=== PATIENT | female | born 1980 | race Caucasian/White ===

== ENCOUNTER → 2018-01-23 | Outpatient (CLI) | payer BC ==
--- NOTE | 2018-01-23 18:08 | Diagnostic Imaging Report ---
INDICATION: Undergoing anatomical assessment. TECHNIQUE: Multiple real-time grayscale images were obtained over the gravid uterus. COMPARISON: None. FINDINGS: Single viable intrauterine , currently in transverse orientation. Normal amount of amniotic fluid. Placenta is posterior and without evidence for previa. The visualized anatomical structures including the kidneys, bladder, stomach, intracranial structures, four-chamber heart, three-vessel cord, and cord insertion site are unremarkable. The spine is unable to be adequately visualized owing to positioning. Maternal adnexa not imaged. Cervical length is 5 cm. Biometrical measurements are as follows: Biparietal 5.45 cm, age 22 weeks 5 days. Head circumference 29.93 cm, age 23 weeks 1 days. Abdominal circumference 17.63 cm, age 22 weeks 4 days. Femur length 3.7 cm, age 21 weeks 6 days. Sonographic estimate age: 22 weeks 4 days. Sonographic estimated date of delivery: 05/25/2018. Estimated Weight: 492 gm (+/- 72 gm). LMP percentile: 67%. heart rate: 146 beats per minute. number: 1 of 1. IMPRESSION: Single viable intrauterine , currently in a transverse orientation. Sonographic estimated age 22 weeks 4 days with an estimated date of delivery of May 25, 2018. No abnormalities are noted at this time. However, the spine cannot be well visualized at this time. Dictated by: Dictated on workstation # [id number]
== END ==
LOC: RAD 10:01
PROVIDERS: ATTEND Obstetrics & Gynecology
DX: O09.512 Supervision of elderly primigravida, second trimester (principal); Z3A.22 22 weeks gestation of pregnancy
CPT/HCPCS: 76805

== ENCOUNTER → 2018-03-20 | Outpatient (CLI) | payer BC ==
--- NOTE | 2018-03-20 17:43 | Diagnostic Imaging Report ---
INDICATION: Further evaluation of anatomy, not seen on prior exam. TECHNIQUE: Multiple real-time grayscale images were obtained over the gravid uterus. COMPARISON: anatomy survey from 01/23/2018. FINDINGS: Single live intrauterine is noted in the cephalic position. MARTÍN is normal at 11.9 cm. Placenta is posteriorly located. Due to advanced gestational age, maternal adnexa are not well seen. The spine is able to be seen on today's examination and shows no abnormality. Biometrical measurements are as follows: Biparietal 8.27 cm, age 33 weeks 2 days. Head circumference 29.52 cm, age 32 weeks 5 days. Abdominal circumference 28.25 cm, age 32 weeks 2 days. Femur length 5.96 cm, age 31 weeks 1 days. Sonographic estimate age: 32 weeks 3 days. Sonographic estimated date of delivery: 05/12/2018. Estimated Weight: 1888 gm (+/- 276 gm). LMP percentile: 96%. heart rate: 150 beats per minute. number: 1 of 1. IMPRESSION: 1. spine is normal. 2. Appropriate interval growth since prior examination. Of note, the fetus is in the 96th percentile for weight based on gestational age. Dictated by: Dictated on workstation # [id number]
== END ==
LOC: RAD 14:03
PROVIDERS: ATTEND Obstetrics & Gynecology
DX: O10.913 Unspecified pre-existing hypertension complicating pregnancy, third trimester (principal); Z3A.32 32 weeks gestation of pregnancy
CPT/HCPCS: 76816

== ENCOUNTER 2018-04-15 10:47 | Outpatient (RCR) | payer BC ==
--- NOTE | 2018-04-15 12:59 | Diagnostic Imaging Report ---
INDICATION: Large for gestational age. TECHNIQUE: Multiple real-time grayscale images were obtained over the gravid uterus. COMPARISON: 03/20/2018. FINDINGS: There is a single live fetus in a cephalic presentation. heart rate was recorded at 155 beats per minute. Placenta is fundal. Amniotic fluid index is 15.2 cm. Biophysical profile was performed. Biophysical profile score is normal at 8 out of 8. Biometrical measurements are as follows: Biparietal 8.98 cm, age 36 weeks 3 days. Head circumference 33.23 cm, age 38 weeks 0 days. Abdominal circumference 32.54 cm, age 36 weeks 4 days. Femur length 6.96 cm, age 35 weeks 5 days. Sonographic estimate age: 36 weeks 5 days. Sonographic estimated date of delivery: 05/08/2018. Estimated Weight: 2931 gm (+/- 428 gm). LMP percentile: 98%. heart rate: 155 beats per minute. number: 1 of 1. IMPRESSION: Single live IUP measuring 36 weeks 5 days showing normal interval growth when compared with prior exam. Biophysical profile score is normal at 8 out of 8. Dictated by: Dictated on workstation # [id number]
--- NOTE | 2018-04-29 14:32 | Diagnostic Imaging Report ---
INDICATION: Gestational diabetes. TECHNIQUE: Multiple real-time grayscale images were obtained over the gravid uterus. COMPARISON: 04/15/2018. FINDINGS: There is single living intrauterine in a cephalic presentation. The biometry correlates with gestational age of 35 weeks 5 days. The amniotic fluid index is 9.65. Placenta is fundal. There is no previa. Heart rate is 152 beats per minute and regular. The anatomical survey is otherwise limited due to late gestational age. The biophysical profile score is 8/8. IMPRESSION: 1. Single living intrauterine with a sonographically estimated gestational age of 35 weeks 5 days and estimated date of confinement of May 29, 2018. 2. Normal biophysical profile score of 8/8. Biometrical measurements are as follows: Biparietal 8.99 cm, age 36 weeks 3 days. Head circumference 32.80 cm, age 37 weeks 2 days. Abdominal circumference 31.45 cm, age 35 weeks 3 days. Femur length 6.54 cm, age 33 weeks 5 days. Sonographic estimate age: 35 weeks 5 days. Sonographic estimated date of delivery: 05/29/18. Estimated Weight: 2627 gm (+/- 384 gm). LMP percentile: 39%. heart rate: 152 beats per minute. number: 1 of 1. Dictated by: Dictated on workstation # [id number]
--- NOTE | 2018-05-13 13:04 | Diagnostic Imaging Report ---
INDICATION: Large for gestational age. TECHNIQUE: Multiple real-time grayscale images were obtained over the gravid uterus. COMPARISON: 04/29/2018. FINDINGS: There is a single live fetus in cephalic presentation. heart rate was recorded 155 beats per minute. Placenta is fundal and to the right. Amniotic fluid index is 8.1 cm. Biophysical profile score is 8 out of 8. Biometrical measurements are as follows: Biparietal 10.10 cm, age 41 weeks 5 days. Head circumference 34.95 cm, age 40 weeks 5 days. Abdominal circumference 35.68 cm, age 39 weeks 5 days. Femur length 7.67 cm, age 39 weeks 2 days. Sonographic estimate age: 40 weeks 3 days. Sonographic estimated date of delivery: 05/10/2018. Estimated Weight: 3928 gm (+/- 574 gm). LMP percentile: 97%. heart rate: 155 beats per minute. number: 1 of 1. IMPRESSION: Single live term infant, as described. Biophysical profile score is 8 out of 8. Dictated by: Dictated on workstation # [id number]
[2018-05-18] MEDS ORDERED: HYDR12.5 PO (00:22)
[2018-05-18] MEDS ORDERED: ESCI10TA PO (00:22)
[2018-05-18] MEDS ORDERED: DOCO200C4 PO (00:22)
[2018-05-18] MEDS ORDERED: HYDR25TA4 PO (02:06)
[2018-05-25] MEDS ORDERED: DOCU100C37 PO (06:51)
[2018-05-25] MEDS ORDERED: Oxycodone Hcl PO (06:51)
[2018-05-25] MEDS ORDERED: IBUP-844 PO (06:51)
[2018-05-25] MEDS ORDERED: FERR-84 PO (06:51)
[2018-05-25] MEDS ORDERED: ACET-77 PO (06:51)
== END 2018-07-14 | disposition home or self-care (01) ==
LOC: RAD 10:47
PROVIDERS: ATTEND Obstetrics & Gynecology
DX: O36.63X1 Maternal care for excessive fetal growth, third trimester, fetus 1 (principal); O24.410 Gestational diabetes mellitus in pregnancy, diet controlled; O09.513 Supervision of elderly primigravida, third trimester; Z68.41 Body mass index [BMI] 40.0-44.9, adult
CPT/HCPCS: 76805; 76819

== ENCOUNTER 2018-05-17 23:47 | Outpatient (CLI) | payer BC ==
[~2018-05-17] VITALS: Ht 170.2 cm; Wt 122.7 kg
--- NOTE | 2018-05-17 23:55 | NUR ---
MARISSA ANGELES presented to unit via ambulatory from ED, accompanied by s/o, with c/o HIGH BLOOD PRESSURE,DIABETES. MARISSA ANGELES weighed, gowned, voided, and to bed. EFHM and TOCO applied, VS taken. MARISSA ANGELES oriented to bed controls, call light, TV, heat, and A/C controls.
[2018-05-18] VITALS (7 sets, daily range): BP systolic 134–150; BP diastolic 77–94
[2018-05-18 00:08] LABS: BILIRUBIN,URINE NEGATIVE (NEGATIVE); CLARITY,URINE CLEAR; COLOR,URINE YELLOW; GLUCOSE, URINE (UA) NEGATIVE (NEGATIVE); KETONES,URINE 4+ (NEGATIVE); LEUKOCYTE ESTERASE ,URINE 1+ (NEGATIVE); NITRITE,URINE NEGATIVE (NEGATIVE); PH,URINE 6.5 (5-9); PROTEIN,URINE 2+ (NEGATIVE); UROBILINOGEN,URINE 1 MG/DL (NORMAL)
[2018-05-18 00:18] LABS: BACTERIA,URINE FEW /HPF; RBC,URINE RARE /HPF; WBC,URINE 0-2 /HPF
[2018-05-18] MEDS ORDERED: HYDR12.5 PO (00:22)
[2018-05-18] MEDS ORDERED: DOCO200C4 PO (00:22)
[2018-05-18] MEDS ORDERED: ESCI10TA PO (00:22)
--- NOTE | 2018-05-18 00:46 | NUR ---
Dr. Barron called and given update on pt. Informed that pt came in d/t elevated BP's at home. Three previous blood pressures read to Informed that FHT's are reactive and that pt is teja every 10-12min, but is unaware of contractions. Informed that pt had 2+ protein and 4+ keytones in urine. orders a CMP, CBC, and Protein Creatine Ratio to be run, and to call her with the results.
[2018-05-18 01:15] LABS: BASOPHILS % (AUTO) 0 % (0-10); EOSINOPHILS # (AUTO) 0.1 10^3/uL (0.0-0.3); EOSINOPHILS % (AUTO) 1 % (0-10); HEMATOCRIT 30 % (35-52); HEMOGLOBIN 10.5 G/DL (11.5-16.0); LYMPHOCYTES # (AUTO) 2.3 X 10^3 (1.0-4.0); LYMPHOCYTES % (AUTO) 19 % (12-44); MEAN CORPUSCULAR HEMOGLOBIN 28 PG (25-34); MEAN CORPUSCULAR HGB CONC 35 G/DL (32-36); MEAN CORPUSCULAR VOLUME 81 FL (80-99); MONOCYTES # (AUTO) 0.9 X 10^3 (0.0-1.0); MONOCYTES % (AUTO) 8 % (0-12); NEUTROPHILS # (AUTO) 8.6 X 10^3 (1.8-7.8); NEUTROPHILS % (AUTO) 72 % (42-75); PLATELET COUNT 198 10^3/uL (130-400); RED CELL DISTRIBUTION WIDTH 14.7 % (10.0-14.5)
[2018-05-18 01:35] LABS: ALANINE AMINOTRANSFERASE 14 U/L (0-55); ALBUMIN 3.2 GM/DL (3.2-4.5); ALKALINE PHOSPHATASE 206 U/L (40-136); BILIRUBIN,TOTAL 0.3 MG/DL (0.1-1.0); BUN/CREATININE RATIO 23; CALCIUM 8.6 MG/DL (8.5-10.1); CARBON DIOXIDE 18 MMOL/L (21-32); CHLORIDE 105 MMOL/L (98-107); CREATININE SERUM 0.62 MG/DL (0.60-1.30); GFR ESTIMATED > 60; GLUCOSE 112 MG/DL (70-105); POTASSIUM 3.3 MMOL/L (3.6-5.0); SODIUM 135 MMOL/L (135-145); TOTAL PROTEIN 5.9 GM/DL (6.4-8.2)
--- NOTE | 2018-05-18 01:53 | NUR ---
Dr. Barron called and read labs and recent B/P's. Dr. Barron states that she may be discharged, but that she needs to be seen in the office on Sunday to talk about possible induction. also orders pt to start taking 25mg of Hydrochlorothiazide daily.
[2018-05-18] MEDS ORDERED: HYDR25TA4 PO (02:06)
--- NOTE | 2018-05-18 02:15 | NUR ---
Discharge instructions reviewed with pt. Pt is up and changed into clothes, and walks out with . Pt. shows no s/s of distress.
== END 2018-05-18 02:15 | disposition home or self-care (01) ==
LOC: WSo 23:47 → LDRP 23:48 → WSo 05-18 02:15
PROVIDERS: ATTEND Obstetrics & Gynecology
DX: O10.913 Unspecified pre-existing hypertension complicating pregnancy, third trimester (principal); O24.410 Gestational diabetes mellitus in pregnancy, diet controlled; Z3A.37 37 weeks gestation of pregnancy
CPT/HCPCS: 36415; 80053; 81000; 82570; 84156; 85025; 99213

== ENCOUNTER 2018-05-23 19:46 | Inpatient (IN) | payer BC ==
[~2018-05-23] VITALS: Ht 170.2 cm; Wt 122.0 kg
[~2018-05-23 19:46] MED LIST: DOCO200C4 PO; ESCI10TA PO; HYDR12.5 PO; HYDR25TA4 PO
--- NOTE | 2018-05-23 19:46 | NUR ---
MARISSA ANGELES presented to unit via ambulation from home, accompanied by for induction of labor. MARISSA ANGELES weighed, gowned, voided, and to bed. EFHM and TOCO applied, VS taken. MARISSA ANGELES oriented to bed controls, call light, TV, heat, and A/C controls.
--- OUTSIDE RECORDS SUMMARY | 2018-05-23 19:58 | XMS REPORT ---
Author Kvng Dickerson Organization [facility] Address [address] [place], [place] [id number] Care Team Providers Care Torch Operator Name Role Phone Kvng Pride PCP Unavailable Allergies and Adverse Reactions Name Reaction Notes PENICILLINS childhood reaction Mosquito bite Plan of Treatment Planned Activity Comments Planned Date Planned Time Plan/Goal US DUPLEX SCAN ABD/PELVIC ORGANS 09/08/2016 12:00 AM BASIC METABOLIC PANEL 09/20/2016 12:00 AM Medications Active Name Start Date Estimated Completion Date SIG Comments valacyclovir 1 gram oral tablet take 2 tablets by oral route BID PRN for cold sore outbreak Acetaminophen Extra Strength 500 mg oral tablet take 2 tablets (1,000 mg ) by oral route every 6 hours as needed Discontinued Name Start Date Discontinued Date SIG Comments labetalol 100 mg oral tablet 09/11/2016 take 1 tablet by oral route daily lisinopril 5 mg oral tablet 09/11/2016 09/20/2016 take 1 tablet (5 mg) by oral route once daily for 30 days Problem List Not available. 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 Procedures Date Ordered Description Order Status 09/04/2016 12:00 AM ROUTINE VENIPUNCTURE Reviewed 09/04/2016 12:00 AM COMPLETE CBC W/AUTO DIFF WBC Reviewed 09/04/2016 12:00 AM COMPREHEN METABOLIC PANEL Reviewed 09/04/2016 12:00 AM ASSAY THYROID STIM HORMONE Reviewed 09/04/2016 12:00 AM ASSAY OF FREE THYROXINE Reviewed 09/04/2016 12:00 AM ASSAY OF TROPONIN QUANT Reviewed 09/04/2016 12:00 AM CREATINE MB FRACTION Reviewed 09/06/2016 12:00 AM URINALYSIS AUTO W/SCOPE Reviewed 09/08/2016 12:00 AM US EXAM ABDO BACK WALL COMP Reviewed 09/16/2016 12:00 AM ROUTINE VENIPUNCTURE Reviewed 09/16/2016 12:00 AM METABOLIC PANEL TOTAL CA Reviewed Results Summary Date and Description Results 09/04/2016 6:15 PM WBC 9.4 RBC 4.47 HGB 12.60 g/dLHCT 37.30 %MCV 83.0 fLMCH 28.20 pgMCHC 33.80 g/dLRDW SD 39 RDW CV 12.90 %MPV 9.90 fLPLT 244 NRBC# 0.00 NRBC% 0.0 %NEUT 62.90 %%LYMP 28.50 %%MONO 5.30 %%EOS 2.40 %%BASO 0.50 %#NEUT 5.90 #LYMP 2.68 #MONO 0.50 #EOS 0.23 #BASO 0.05 MANUAL DIFF NOT IND GLUCOSE 70.0 mg/dLSODIUM 140.0 mmol/LPOTASSIUM 3.70 mmol/LCHLORIDE 105.0 mmol/LCO2 21.0 mmol/LBUN 45.0 mg/dLCREATININE 2.40 mg/dLSGOT/AST 18.0 IU/LSGPT/ALT 14.0 IU/ LALK PHOS 81.0 IU/LTOTAL PROTEIN 7.60 g/dLALBUMIN 4.30 g/dLTOTAL BILI 0.20 mg/ dLCALCIUM 10.0 mg/dLAGE 33 GFR NonAA 23 GFR AA 28 eGFR 23 eGFR AA* 28 CPK 153 IU /LTOTAL MB 5.3 INDEX 3.5 TROPONIN-I AD <0.04 ng/mLFREE T4 0.92 TSH 4.090 uIU/mL 09/16/2016 8:45 AM GLUCOSE 91.0 mg/dLSODIUM 138.0 mmol/LPOTASSIUM 4.0 mmol/ LCHLORIDE 104.0 mmol/LCO2 26.0 mmol/LBUN 8.0 mg/dLCREATININE 0.80 mg/dLCALCIUM 9.40 mg/dLAGE 35 GFR NonAA 83 GFR AA 101 eGFR >60 mL/min/1.73meGFR AA* >60 History Of Immunizations Not available. History of Past Illness Name Date of Onset Comments Hypertension Cold sore Anxiety Fever Sep 04 2016 4:45PM Lethargy Sep 04 2016 4:45PM Vertigo Sep 04 2016 4:45PM Headache Sep 04 2016 4:45PM Chest tightness or pressure Sep 04 2016 4:45PM Chronic renal disease, stage 4, severely decreased glomerular filtration rate ( GFR) between 15-29 mL/min/1.73 square meter Sep 06 2016 1:30PM Headache Sep 04 2016 3:37PM Fever Sep 04 2016 3:37PM Lethargy Sep 04 2016 3:37PM Vertigo Sep 04 2016 3:37PM Chest tightness or pressure Sep 04 2016 3:37PM Chronic kidney disease (CKD) Sep 16 2016 7:09AM Renal insufficiency Sep 20 2016 10:21AM Payers Insurance Name Company Name Plan Name Plan Number Policy Number Policy Group Number [id number] N/A History of Encounters Visit Date Visit Type Provider 09/04/2016 Office visit Kvng Pride NP
--- OUTSIDE RECORDS SUMMARY | 2018-05-23 19:58 | XMS REPORT ---
Author Author Kvng Pride Organization [facility] Address [address] [place], [place] [id number] Care Team Providers Care Certified Prosthetist/Orthotist Name Role Phone Kvng Pride PCP Allergies and Adverse Reactions Name Reaction Notes PENICILLINS childhood reaction Mosquito bite Plan of Treatment Planned Activity Comments Planned Date Planned Time Plan/Goal US DUPLEX SCAN ABD/PELVIC ORGANS 09/08/2016 12:00 AM BASIC METABOLIC PANEL 09/20/2016 12:00 AM vertigo, headaches Medications Active Name Start Date Estimated Completion Date SIG Comments valacyclovir 1 gram oral tablet take 2 tablets by oral route BID PRN for cold sore outbreak Acetaminophen Extra Strength 500 mg oral tablet take 2 tablets (1,000 mg ) by oral route every 6 hours as needed Lexapro 10 mg oral tablet take 1 tablet (10 mg) by oral route once daily pantoprazole 40 mg oral tablet,delayed release (DR/EC) take 1 tablet ( 40 mg) by oral route 2 times per day 28 mg iron- 800 mcg oral tablet take 1 tablet by oral route daily hydrocortisone 1 % topical cream apply a thin layer to the affected area (s) by topical route once daily Name Start Date Expiration Date SIG Comments prednisone 20 mg oral tablet 09/10/2017 09/20/2017 take 2 tabs PO QD x 3 days, then take 1 tab PO QD x 3 days, then 1/2 tab PO QD x 4 days Discontinued Name Start Date Discontinued Date SIG Comments labetalol 100 mg oral tablet 09/11/2016 take 1 tablet by oral route daily lisinopril 5 mg oral tablet 09/11/2016 09/20/2016 take 1 tablet (5 mg) by oral route once daily for 30 days Problem List Not available. 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 Date Ordered Description [...] 12:00 AM METABOLIC PANEL TOTAL CA Reviewed 06/11/2017 12:00 AM FECES CULTURE AEROBIC BACT Reviewed 06/11/2017 12:00 AM C DIFF AMPLIFIED PROBE Reviewed 06/11/2017 12:00 AM OVA AND PARASITES SMEARS Reviewed 06/11/2017 12:00 AM OCCULT BLD FECES 1-3 TESTS Reviewed Results Summary Date and Description Results [...] 7:09AM Renal insufficiency Sep 20 2016 10:21AM Diarrhea Jun 11 2017 3:02PM Bitten or stung by nonvenomous insect and other nonvenomous arthropods, initial encounter Sep 10 2017 2:22PM Dermatitis Sep 10 2017 2:22PM Payers Insurance Name Company Name Plan Name Plan Number Policy Number Policy Group Number Start Date [employer] [facility] [id number] N/A [employer] [facility] [id number] N/A History of Encounters Visit Date Visit Type Provider 09/10/2017 Office visit Kvng Pride NP 06/11/2017 Office visit Kvng Pride NP 09/04/2016 Office visit Kvng Pride NP
--- OUTSIDE RECORDS SUMMARY | 2018-05-23 19:58 | XMS REPORT ---
Author Kvng Dickerson Organization [facility] Address [address] [place], [place] [id number] Care Team Providers Care Superintendent House Name Role Phone Kvng Pride PCP Unavailable Allergies and Adverse Reactions Name Reaction Notes PENICILLINS childhood reaction Mosquito bite Plan of Treatment Not available. Medications Active Name Start Date Estimated Completion Date SIG Comments valacyclovir 1 gram oral tablet take 2 tablets by oral route BID PRN for cold sore outbreak Acetaminophen Extra Strength 500 mg oral tablet take 2 tablets (1,000 mg ) by oral route every 6 hours as needed lisinopril 5 mg oral tablet 09/11/2016 10/11/2016 take 1 tablet (5 mg) by oral route once daily for 30 days Discontinued Name Start Date Discontinued Date SIG Comments labetalol 100 mg oral tablet 09/11/2016 take 1 tablet by oral route daily Problem List Not available. 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 History of [...] tightness or pressure Sep 04 2016 3:37PM Payers Insurance Name Company Name Plan Name Plan Number Policy Number Policy Group Number [facility] Date [id number] N/A History of Encounters Visit Date Visit Type Provider 09/04/2016 Office visit Kvng Pride NP
--- OUTSIDE RECORDS SUMMARY | 2018-05-23 19:59 | XMS REPORT ---
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
--- OUTSIDE RECORDS SUMMARY | 2018-05-23 19:59 | XMS REPORT ---
Author Kvng Dickerson Organization [facility] Address [address] [place], [place] [id number] Care Team Providers Care Vessel Specialist Name Role Phone Kvng Pride PCP Unavailable Allergies and Adverse Reactions Name Reaction Notes PENICILLINS childhood reaction Mosquito bite Plan of Treatment Not available. Medications Active Name Start Date Estimated Completion Date SIG Comments labetalol 100 mg oral tablet take 1 tablet by oral route daily valacyclovir 1 gram oral tablet take 2 tablets by oral route BID PRN for cold sore outbreak Acetaminophen Extra Strength 500 mg oral tablet take 2 tablets (1,000 mg ) by oral route every 6 hours as needed Problem List Not available. 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
--- OUTSIDE RECORDS SUMMARY | 2018-05-23 19:59 | XMS REPORT ---
Author Kvng Dickerson Organization [facility] Address [address] [place], [place] [id number] Care Team Providers Care Library Services Assistant Name Role Phone Kvng Pride PCP Allergies [...] by oral route 2 times per day Discontinued Name Start Date Discontinued Date SIG Comments labetalol 100 mg oral tablet 09/11/2016 take 1 tablet by oral route daily lisinopril 5 mg oral tablet 09/11/2016 09/20/2016 take 1 tablet (5 mg) by oral route once daily for 30 days Problem List Not available. 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
--- OUTSIDE RECORDS SUMMARY | 2018-05-23 19:59 | XMS REPORT | Continuity of Care Document ---
Author Author [facility] Organization [facility] Address Unknown Phone Unavailable Allergies Active Description Code Type Severity Reaction Onset Reported/Identified Relationship to Patient Clinical Status Yes Penicillins [id number] Drug Allergy Unknown N/A 05/17/2018 Medications There is no data. 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, unspecified 02/07/2018 KAMILLE DOMINGUEZ DO Ot O09.512 SUPERVISION OF ELDERLY PRIMIGRAVIDA, [facility] 02/07/2018 KAMILLE DOMINGUEZ DO Ot Z3A.22 22 WEEKS GESTATION OF 03/21/2018 KAMILLE DOMINGUEZ DO Ot O10.913 UNSP PRE-EXISTING HTN COMP , 03/21/2018 KAMILLE DOMINGUEZ DO Ot Z3A.32 32 WEEKS GESTATION OF 04/03/2018 KAMILLE DOMINGUEZ DO, Ot O10.913 UNSP PRE-EXISTING HTN COMP , 04/03/2018 KAMILLE DOMINGUEZ DO, Ot Z3A.32 32 WEEKS GESTATION OF 04/29/2018 KAMILLE DOMINGUEZ DO Ot O09.513 SUPERVISION OF ELDERLY PRIMIGRAVIDA, [facility] 04/29/2018 KAMILLE DOMINGUEZ DO Ot O24.410 GESTATIONAL DIABETES MELLITUS IN PREGNAN 04/29/2018 KAMILLE DOMINGUEZ DO Ot O36.63X1 MATERNAL CARE FOR EXCESS GROWTH, T 04/29/2018 KAMILLE DOMINGUEZ DO, Ot Z68.41 BODY MASS INDEX (BMI) 40.0-44.9, ADULT 04/29/2018 KAMILLE DOMINGUEZ DO Ot O09.513 SUPERVISION OF ELDERLY PRIMIGRAVIDA, [facility] 04/29/2018 KAMILLE DOMINGUEZ DO, Ot O24.410 GESTATIONAL DIABETES MELLITUS IN PREGNAN 04/29/2018 KAMILLE DOMINGUEZ DO Ot O36.63X1 MATERNAL CARE FOR EXCESS GROWTH, T 04/29/2018 KAMILLE DOMINGUEZ DO Ot Z68.41 BODY MASS INDEX (BMI) 40.0-44.9, ADULT 04/29/2018 KAMILLE DOMINGUEZ DO Ot O09.513 SUPERVISION OF ELDERLY PRIMIGRAVIDA, [facility] 04/29/2018 KAMILLE DOMINGUEZ DO Ot O24.410 GESTATIONAL DIABETES MELLITUS IN PREGNAN 04/29/2018 KAMILLE DOMINGUEZ DO Ot O36.63X1 MATERNAL CARE FOR EXCESS GROWTH, T 04/29/2018 KAMILLE DOMINGUEZ DO Ot Z68.41 BODY MASS INDEX (BMI) 40.0-44.9, ADULT 05/13/2018 KAMILLE DOMINGUEZ DO Ot O09.513 SUPERVISION OF ELDERLY PRIMIGRAVIDA, [facility] 05/13/2018 KAMILLE DOMINGUEZ DO Ot O24.410 GESTATIONAL DIABETES MELLITUS IN PREGNAN 05/13/2018 ALBERTO BALDERAS KAMILLE C Ot O36.63X1 MATERNAL CARE FOR EXCESS GROWTH, T 05/13/2018 KAMILLE DOMINGUEZ DO Ot Z68.41 BODY MASS INDEX (BMI) 40.0-44.9, ADULT 05/20/2018 KAMILLE DOMINGUEZ DO Ot O10.913 UNSP PRE-EXISTING HTN COMP , 05/20/2018 KAMILLE DOMINGUEZ DO Ot O24.410 GESTATIONAL DIABETES MELLITUS IN PREGNAN 05/20/2018 KAMILLE DOMINGUEZ DO C Ot Z3A.37 37 WEEKS GESTATION OF 05/22/2018 KAMILLE DOMINGUEZ DO Ot O09.513 SUPERVISION OF ELDERLY PRIMIGRAVIDA, [facility] 05/22/2018 KAMILLE DOMINGUEZ DO Ot O24.410 GESTATIONAL DIABETES MELLITUS IN PREGNAN 05/22/2018 ALBERTO BALDERAS KAMILLE C Ot O36.63X1 MATERNAL CARE FOR EXCESS GROWTH, T 05/22/2018 KAMILLE DOMINGUEZ DO Ot Z68.41 BODY MASS INDEX (BMI) 40.0-44.9, ADULT Procedures Code Description [place] [address] EYE EXAM, NEW PATIENT 07/19/2016 [id number] REFRACTION 07/19/2016 Results Test Result Range Ova + Parasite Exam - 06/13/17 10:19 Ova + Parasite Exam Note Complete urinalysis with reflex to culture - 05/18/18 00:00 Urine color determination YELLOW NRG Urine clarity determination CLEAR NRG Urine pH measurement by test strip 6.5 5-9 Specific gravity of urine by test strip 1.020 1.016- 1.022 Urine protein assay by test strip, semi-quantitative 2+ NEGATIVE Urine glucose detection by automated test strip NEGATIVE NEGATIVE Erythrocytes detection in urine sediment by light microscopy 1+ NEGATIVE Urine ketones detection by automated test strip 4+ NEGATIVE Urine nitrite detection by test strip NEGATIVE NEGATIVE Urine total bilirubin detection by test strip NEGATIVE NEGATIVE Urine urobilinogen measurement by automated test strip (mass/volume) 1 mg/dL NORMAL Urine leukocyte esterase detection by dipstick 1+ NEGATIVE Automated urine sediment erythrocyte count by microscopy (number/high power field) RARE NRG Automated urine sediment leukocyte count by microscopy (number/high power field ) [HPF] NRG Bacteria detection in urine sediment by light microscopy FEW NRG Crystals detection in urine sediment by light microscopy NONE NRG Casts detection in urine sediment by light microscopy NONE NRG Mucus detection in urine sediment by light microscopy NEGATIVE NRG Complete urinalysis with reflex to culture NO NRG Urine protein/creatinine mass ratio - 05/18/18 00:00 Urine protein measurement (mass/volume) 20 mg/dL 6-12 Urine creatinine measurement (mass/volume) 166 mg/dL 30- 125 Urine protein/creatinine mass ratio 0.12 NRG Complete blood count (CBC) with automated white blood cell (WBC) differential - 05/18/18 01:08 Blood leukocytes automated count (number/volume) 12.0 10*3/uL 4.3-11.0 Blood erythrocytes automated count (number/volume) 3.76 10*6/uL 4.35-5.85 Venous blood hemoglobin measurement (mass/volume) 10.5 g/dL 11.5-16.0 Blood hematocrit (volume fraction) 30 % 35-52 Automated erythrocyte mean corpuscular volume 81 [foz_us] 80-99 Automated erythrocyte mean corpuscular hemoglobin (mass per erythrocyte) 28 pg 25-34 Automated erythrocyte mean corpuscular hemoglobin concentration measurement ( mass/volume) 35 g/dL 32-36 Automated erythrocyte distribution width ratio 14.7 % 10.0-14.5 Automated blood platelet count (count/volume) 198 10*3/uL 130-400 Automated blood platelet mean volume measurement 10.0 [foz_us] 7.4-10.4 Automated blood neutrophils/100 leukocytes 72 % 42-75 Automated blood lymphocytes/100 leukocytes 19 % 12-44 Blood monocytes/100 leukocytes 8 % 0-12 Automated blood eosinophils/100 leukocytes 1 % 0-10 Automated blood basophils/100 leukocytes 0 % 0-10 Blood neutrophils automated count (number/volume) 8.6 10*3 1.8-7.8 Blood lymphocytes automated count (number/volume) 2.3 10*3 1.0-4.0 Blood monocytes automated count (number/volume) 0.9 10*3 0.0-1.0 Automated eosinophil count 0.1 10*3/uL 0.0-0.3 Automated blood basophil count (count/volume) 0.0 10*3/uL 0.0-0.1 Comprehensive metabolic panel - 05/18/18 01:08 Serum or plasma sodium measurement (moles/volume) 135 mmol/L 135-145 Serum or plasma potassium measurement (moles/volume) 3.3 mmol/L 3.6-5.0 Serum or plasma chloride measurement (moles/volume) 105 mmol/L 98-107 Carbon dioxide 18 mmol/L 21-32 Serum or plasma anion gap determination (moles/volume) 12 mmol/L 5-14 Serum or plasma urea nitrogen measurement (mass/volume) 14 mg/dL 7-18 Serum or plasma creatinine measurement (mass/volume) 0.62 mg/dL 0.60-1.30 Serum or plasma urea nitrogen/creatinine mass ratio 23 NRG Serum or plasma creatinine measurement with calculation of estimated glomerular filtration rate > NRG Serum or plasma glucose measurement (mass/volume) 112 mg/dL 70-105 Serum or plasma calcium measurement (mass/volume) 8.6 mg/dL 8.5-10.1 Serum or plasma total bilirubin measurement (mass/volume) 0.3 mg/dL 0.1-1.0 Serum or plasma alkaline phosphatase measurement (enzymatic activity/volume) 206 U/L 40-136 Serum or plasma aspartate aminotransferase measurement (enzymatic activity/ volume) 14 U/L 5-34 Serum or plasma alanine aminotransferase measurement (enzymatic activity/volume ) 14 U/L 0-55 Serum or plasma protein measurement (mass/volume) 5.9 g/dL 6.4-8.2 Serum or plasma albumin measurement (mass/volume) 3.2 g/dL 3.2-4.5 CALCIUM CORRECTED 9.2 mg/dL 8.5-10.1 Encounters ACCT No. Visit Date/Time Discharge Status Pt. Type Provider Facility Loc./Unit Complaint [id number] 07/27/2015 14:48:02 ACT Unknown [id number] 12/21/2016 12:23:00 Document Registration [id number] 06/18/2017 07:05:00 Document Registration 11/201606/19/2017 09:47:22 06/19/2017 23:59:59 CLS Outpatient [id number] 09/28/2016 17:39:06 09/28/2016 23:59:59 DIS Outpatient [facility] lab [id number] 09/06/2016 17:38:46 09/06/2016 23:59:59 DIS Outpatient [facility] lab [id number] 09/10/2017 14:55:40 09/10/2017 23:59:59 CLS Outpatient [facility] [id number] 06/11/2017 15:32:00 06/11/2017 23:59:59 CLS Outpatient [facility] [id number] 09/14/2016 12:15:49 09/14/2016 23:59:59 CLS Outpatient [facility] [id number] 05/17/2018 23:47:00 05/18/2018 02:15:00 DIS Outpatient KAMILLE DOMINGUEZ DO [facility] WSo HIGH BLOOD PRESSURE, DIABETES [id number] 04/15/2018 10:47:00 04/15/2018 23:59:59 CLS Outpatient KAMILLE DOMINGUEZ DO [facility] RAD LARGE FOR GESTATIONAL AGE FETUS AFFECTING MOTHER [id number] 03/27/2018 13:32:00 03/27/2018 23:59:59 CLS Preadmit KAMILLE DOMINGUEZ DO [facility] RAD LARGE FOR GESTATIONAL AGE FETUS AFFECTING MOTHER [id number] 03/20/2018 14:03:00 03/20/2018 23:59:59 CLS Outpatient KAMILLE DOMINGUEZ DO [facility] RAD GESTATIONAL DIABETES [id number] 01/23/2018 10:01:00 01/23/2018 23:59:59 CLS Outpatient KAMILLE DOMINGUEZ DO [facility] RAD 17 WEEKS GESTATION OF [id number] 05/23/2018 19:46:00 ACT Inpatient KAMILLE DOMINGUEZ DO [facility] LDRP INDUCTION [id number] 07/19/2016 12:30:00 Document Registration
[2018-05-23 20:05] VITALS: BP 155/89
[2018-05-23 20:30] VITALS: BP 131/82
[2018-05-23] MEDS ORDERED: LACTATED RINGERS 1,000 ML IV SCH (20:44)
[2018-05-23] MEDS ORDERED: MINERAL OIL CONCENTRATE 99.9% 15 ML UDC TOP PRN (20:45)
[2018-05-23] MEDS ORDERED: ZOLPIDEM 5 MG (AMBIEN) TAB PO ONE (20:45)
[2018-05-23] MEDS ORDERED: MISOPROSTOL 100 MCG (CYTOTEC) TAB PO ONE (20:45)
[2018-05-23 20:52] LABS: BASOPHILS % (AUTO) 0 % (0-10); EOSINOPHILS # (AUTO) 0.1 10^3/uL (0.0-0.3); EOSINOPHILS % (AUTO) 1 % (0-10); HEMATOCRIT 31 % (35-52); HEMOGLOBIN 10.6 G/DL (11.5-16.0); LYMPHOCYTES # (AUTO) 2.3 X 10^3 (1.0-4.0); LYMPHOCYTES % (AUTO) 18 % (12-44); MEAN CORPUSCULAR HEMOGLOBIN 27 PG (25-34); MEAN CORPUSCULAR HGB CONC 34 G/DL (32-36); MEAN CORPUSCULAR VOLUME 80 FL (80-99); MEAN PLATELET VOLUME 10.6 FL (7.4-10.4); MONOCYTES # (AUTO) 1.3 X 10^3 (0.0-1.0); MONOCYTES % (AUTO) 10 % (0-12); NEUTROPHILS % (AUTO) 71 % (42-75); PLATELET COUNT 212 10^3/uL (130-400); RED CELL DISTRIBUTION WIDTH 14.6 % (10.0-14.5); WHITE BLOOD COUNT 12.7 10^3/uL (4.3-11.0)
[2018-05-23] MEDS: LACTATED RINGERS 1,000 ML IV SCH (21:18)
[2018-05-23 21:27] LABS: BILIRUBIN,URINE NEGATIVE (NEGATIVE); CLARITY,URINE CLEAR; COLOR,URINE YELLOW; GLUCOSE, URINE (UA) NEGATIVE (NEGATIVE); KETONES,URINE NEGATIVE (NEGATIVE); LEUKOCYTE ESTERASE ,URINE NEGATIVE (NEGATIVE); NITRITE,URINE NEGATIVE (NEGATIVE); PH,URINE 7 (5-9); PROTEIN,URINE NEGATIVE (NEGATIVE); UROBILINOGEN,URINE NORMAL (NORMAL)
[2018-05-23 21:43] LABS: BACTERIA,URINE FEW /HPF; RBC,URINE RARE /HPF; SQUAMOUS EPITHELIAL CELL,UR 0-2 /HPF; WBC,URINE 0-2 /HPF
[2018-05-23 22:30] VITALS: BP 142/93
[2018-05-24] VITALS (61 sets, daily range): BP systolic 118–163; BP diastolic 63–103
[2018-05-24] MEDS: MISOPROSTOL 100 MCG (CYTOTEC) TAB PO SCH ×3 (01:13→08:56)
[2018-05-24] MEDS: CATHETER FLUSH 10 ML SYR IV SCH ×2 (01:41→06:28)
[2018-05-24] MEDS: LACTATED RINGERS 1,000 ML IV SCH ×3 (04:21→20:39)
--- NOTE | 2018-05-24 07:05 | NUR ---
PT REPORT AND PLAN OF CARE RECEIVED FROM MURRAY FLANNERY AT THIS TIME.
--- NOTE | 2018-05-24 07:15 | NUR ---
THIS RN INTRODUCES SELF TO PT AND AT THIS TIME. RN DOES PHYSICAL ASSESSMENT, VSS, REVIEWS PLAN OF CARE, ANSWERS QUESTIONS, ORGANIZES AND STOCKS ROOM. CALL LIGHT WITHIN REACH. REMAINS AT BEDSIDE.
[2018-05-24] MEDS ORDERED: SUFENTA 0.6MCG/ML BUPIVA 0.125 100 ML ONE (11:47)
--- NOTE | 2018-05-24 11:56 | NUR ---
ANESTHESIA CALLED AT THIS TIME FOR EPIDURAL PLACEMENT. LATOYA MOREAU SAID SHE WILL BE UP SOON SHE CAN.
[2018-05-24] MEDS ORDERED: LIDOCAINE PF 2% 5 ML (XYLOCAINE) VIAL ONE (12:06)
[2018-05-24] MEDS ORDERED: fentaNYL INJECTION 100 MCG/2 ML AMP ONE (12:06)
[2018-05-24] MEDS ORDERED: BUPIVACAINE 0.25% 30 ML (SENSORCAINE) VIAL ONE (12:06)
[2018-05-24] MEDS: EPIDURAL (SUFENTA 0.6MCG/ML BUPIVA 0.125%) 100 ML BAG EPI PRN ×2 (12:35→20:18)
[2018-05-24] MEDS ORDERED: LACTATED RINGERS 1,000 ML IV ONE ×2 (13:14)
[2018-05-24] MEDS ORDERED: NALOXONE 0.4 MG/ML 1 ML (NARCAN) VIAL IV PRN (13:15)
[2018-05-24] MEDS ORDERED: ONDANSETRON 4 MG/2 ML (SDV) Z0FRAN IV PRN (13:15)
[2018-05-24] MEDS ORDERED: OXYTOCIN/NORMAL SALINE 500 ML IV ONE (13:26)
[2018-05-24] MEDS ORDERED: OXYTOCIN/NORMAL SALINE 500 ML IV SCH (13:32)
--- NOTE | 2018-05-24 14:02 | NUR ---
DR DOMINGUEZ CALLED WITH UPDATED PT REPORT. THIS RN REPORTS BPs. ONE TIME ORDER FOR LABETOLOL GIVEN AT THIS TIME.
[2018-05-24] MEDS ORDERED: LABETALOL HCL 20 MG/4 ML VIAL IV NR (14:10)
--- NOTE | 2018-05-24 16:43 | NUR ---
DR DOMINGUEZ CALLED, THIS RN GIVES DR DOMINGUEZ UPDATED PT REPORT AT THIS TIME. SVE /-2, PITOCIN ON 18 MILLIUNITS, UC 2-3 MIN, COMFORTABLE WITH EPIDURAL. NO NEW ORDERS.
--- NOTE | 2018-05-24 17:40 | NUR ---
this rn called dr pederson with updated pt report. sve unchanged, pitocin rate at 20. uc pattern. dr pederson okay to continue to increase pitocin past 20 milliunits.
--- NOTE | 2018-05-24 19:10 | NUR ---
report given to cole boyer at this time
--- NOTE | 2018-05-24 21:05 | NUR ---
DR DOMINGUEZ NOTIFIED OF PT SVE. WILL CONT WITH CURRENT PLAN OF CARE.
[2018-05-25] VITALS (25 sets, daily range): BP systolic 126–170; BP diastolic 66–89
[2018-05-25] MEDS ORDERED: PROPRANOLOL 1 MG/ML (INDERAL) INJ IV ONE (01:45)
[2018-05-25] MEDS: EPIDURAL (SUFENTA 0.6MCG/ML BUPIVA 0.125%) 100 ML BAG EPI PRN (02:45)
[2018-05-25] MEDS ORDERED: CITRIC ACID/SOB CIT (BICITRA) 30 ML UDC ONE (04:26)
[2018-05-25] MEDS ORDERED: FAMOTIDINE 20MG/2ML IV (PEPCID) ONE (04:26)
[2018-05-25] MEDS ORDERED: METOCLOPRAMIDE INJ 10 MG/2 ML (REGLAN) ONE (04:26)
[2018-05-25] MEDS ORDERED: metroNIDAZOLE 500MG/100ML IVPB 0 ML ONE (04:27)
[2018-05-25] MEDS ORDERED: ceFAZolin 2 GM IV Premixed 50 ML ONE (04:27)
[2018-05-25] MEDS ORDERED: ONDANSETRON 4 MG/2 ML (SDV) Z0FRAN ONE ×2 (04:56→05:06)
[2018-05-25] MEDS ORDERED: fentaNYL INJECTION 100 MCG/2 ML AMP ONE (04:56)
[2018-05-25] MEDS ORDERED: OXYTOCIN/NORMAL SALINE 1,000 ML IV ONE (04:56)
[2018-05-25] MEDS ORDERED: KETOROLAC 30 MG/ML VIAL ONE (04:56)
--- NOTE | 2018-05-25 04:56 | Progress Note-Standard ---
Standard Progress Note Progress Notes/Assess & Plan Date Seen by a Provider: May 25, 2018 Time Seen by a Provider: 04:45 Progress/Assessment & Plan Patient was admitted for induction on 05/23/18 for IOL due to chronic hypertension, gestational diabetes, A1 and AMA. Received misoprostol until AROM on 05/24/18 at 2-3 cm. Augmentation with Pitocin starting at 1 pm on She has had prolonged latent phase and prolonged labor that was assisted with pitocin and IV propranolol. She did receive Labetalol 20 mg IV x 1 but has not received additional antihypertensives. Glucose has been wnl and she has had only clear liquids since 05/24/18 am. She has been 8 cm for over 2 hours with no descent and adequate contractions. the decision has been made for section. risks of bleeding, infection, injury to bowel, bladder and ureter. Proper consents have been signed. Prophylactic antibiotics (Ancef and Zithromax/due to rupture) have been started. She is currently 39 2/7 weeks of gestation. Laboratory Tests Test 05/23/18 20:10 05/23/18 21:00 05/23/18 21:07 05/24/18 06:15 Range/Units White Blood Count 12.7 H 4.3-11.0 10^3/uL Red Blood Count 3.87 L 4.35-5.85 10^6/uL Hemoglobin 10.6 L 11.5-16.0 G/DL Hematocrit 31 L 35-52 % Mean Corpuscular Volume 80 80-99 FL Mean Corpuscular Hemoglobin 27 25-34 PG Mean Corpuscular Hemoglobin Concent 34 32-36 G/DL Red Cell Distribution Width 14.6 H 10.0-14.5 % Platelet Count 212 130-400 10^3/uL Mean Platelet Volume 10.6 H 7.4-10.4 FL Neutrophils (%) (Auto) 71 42-75 % Lymphocytes (%) (Auto) 18 12-44 % Monocytes (%) (Auto) 10 0-12 % Eosinophils (%) (Auto) 1 0-10 % Basophils (%) (Auto) 0 0-10 % Neutrophils # (Auto) 9.0 H 1.8-7.8 X 10^3 Lymphocytes # (Auto) 2.3 1.0-4.0 X 10^3 Monocytes # (Auto) 1.3 H 0.0-1.0 X 10^3 Eosinophils # (Auto) 0.1 0.0-0.3 10^3/uL Basophils # (Auto) 0.0 0.0-0.1 10^3/uL Urine Color YELLOW Urine Clarity CLEAR Urine pH 7 5-9 Urine Specific [place] 1.010 L 1.016-1.022 Urine Protein NEGATIVE NEGATIVE Urine Glucose (UA) NEGATIVE NEGATIVE Urine Ketones NEGATIVE NEGATIVE Urine Nitrite NEGATIVE NEGATIVE Urine Bilirubin NEGATIVE NEGATIVE Urine Urobilinogen NORMAL NORMAL MG/DL Urine Leukocyte Esterase NEGATIVE NEGATIVE Urine RBC (Auto) NEGATIVE NEGATIVE Urine RBC RARE /HPF Urine WBC 0-2 /HPF Urine Squamous Epithelial Cells 0-2 /HPF Urine Crystals NONE /LPF Urine Bacteria FEW H /HPF Urine Casts NONE /LPF Urine Mucus NEGATIVE /LPF Urine Culture Indicated NO Glucometer 89 72 70-110 MG/DL 05/24/18 05/24/18 05/24/18 05/24/18 17:00 17:15 17:30 17:45 Temp 98.6 Pulse 85 80 84 86 Resp 18 B/P (MAP) 141/78 (99) 140/71 (94) 136/81 (99) 135/80 (98) O2 Delivery Room Air Room Air Room Air Room Air 05/24/18 05/24/18 05/24/18 05/24/18 18:00 18:15 18:30 18:45 Pulse 83 86 80 90 Resp 18 B/P (MAP) 132/76 (94) 133/83 (100) 149/76 (100) 148/90 (109) O2 Delivery Room Air Room Air Room Air Room Air 05/24/18 05/24/18 05/24/18 05/24/18 19:00 19:15 19:30 19:45 Temp 98.7 Pulse 75 85 84 87 B/P (MAP) 147/79 (101) 131/82 (98) 134/74 (94) 138/82 (100) O2 Delivery Room Air Room Air Room Air Room Air 05/24/18 05/24/18 05/24/18 05/24/18 20:00 20:15 20:30 20:35 Temp 99.1 Pulse 87 84 87 B/P (MAP) 133/82 (99) 146/76 (99) 145/76 (99) O2 Delivery Room Air Room Air Room Air 05/24/18 05/24/18 05/24/18 05/24/18 20:45 21:00 21:15 21:30 Pulse 83 88 85 84 B/P (MAP) 147/77 (100) 142/78 (99) 138/76 (96) 131/71 (91) O2 Delivery Room Air Room Air Room Air Room Air 05/24/18 05/24/18 05/24/18 05/25/18 21:45 22:00 22:15 02:45 Temp 98.7 Pulse 77 77 88 B/P (MAP) 122/68 (86) 123/70 (87) 138/69 (92) O2 Delivery Room Air Room Air Room Air 05/25/18 00:00 Intake Total 1000 ml Balance 1000 ml Lungs CTA Heart RRR Cervix 8 cm/90/-1 FHT reassuring, category 1 [place] q 6-7 minutes with pitocin off. Assessment: 1. 37 year old at 39 2/7 weeks 2. Failure to progress, suspect CPD and malpresentation 3. chronic hypertension 4. BMI 42 5. Gestational Diabetes, A1 6. Advanced maternal age, primiparous KAMILLE DOMINGUEZ DO May 25, 2018 04:56
[2018-05-25] MEDS ORDERED: NS (IVPB) 250 ML ONE (04:57)
[2018-05-25] MEDS ORDERED: AZITHROMYCIN 500 MG (ZITHROMAX) VIAL ONE (04:57)
[2018-05-25] MEDS ORDERED: OXYTOCIN/NORMAL SALINE 500 ML IV SCH (04:59)
--- NOTE | 2018-05-25 04:59 | Cesarean Section Operative ---
Procedure Procedure Note Pre-operative Diagnosis: Grace Nice is a 1. 37 year old at 39 2/7 weeks 2. Failure to progress, suspect CPD and malpresentation 3. chronic hypertension 4. BMI 42 5. Gestational Diabetes, A1 6. Advanced maternal age, primiparous Post-operative Diagnosis: same, OP, CPD Procedure: primary low transverse section Physician: KAMILLE DOMINGUEZ Estimated blood loss: mL Disposition: stable Anesthesia: Spinal (Epidural had to be replaced) Findings: Viable male , Apgars 3/7/8, weight 9#14oz, intact placenta, 3vc, normal appearing uterus, tubes, and ovaries. Indications:Grace Nice is a 1. 37 year old at 39 2/7 weeks 2. Failure to progress, suspect CPD and malpresentation 3. chronic hypertension 4. BMI 42 5. Gestational Diabetes, A1 6. Advanced maternal age, primiparous Presenting for primary section. Procedure Details: The patient was seen in pre-op and the procedure was discussed with the patient in full, including the risks, benefits, and alternatives. All questions were answered. The patient was taken to the operating room and a time out was performed, verifying patient and procedure. After spinal anesthesia was placed by our anesthesia colleagues, the patient was placed in the dorsal supine with leftward tilt for uterine displacement.~ Her abdomen was then prepped and draped in the typical sterile fashion. A Pfannenstiel skin incision was made using a scalpel and carried down through the underlying fascia. The fascia was incised in the midline and tented up using Servando clamps. On both the inferior and superior fascia side the rectus muscle was dissected off bluntly and sharply using Ross scissors. The peritoneum was identified and entered bluntly in the midline. This was then stretched laterally using manual strength. After entering the abdominal cavity and confirming lack of intraperitoneal adhesions, a large Kaleb retractor was placed and the lower uterine segment was visualized. A bladder flap was created with the use of Metzenbaum scissors.~ A scalpel was utilized to make a low transverse uterine incision. Amniotomy was performed with an Allis clamp with return of clear fluid. The Fetus was noted to be in the OP presentation, but with the incision on the uterus, the left hand shot through the incision. The head was also flexed posteriorly nearly a forehead presentation. The head was large. I made a T in the incision to help facilitate deliver and protect the lower incision from extension. I had to place a Silastic suction to keep the head flexed enough to facilitate delivery without it reverting back to the posterior flexed position and the hand to deliver. I then removed the Silastic and replaced this to aid in the delivery. The 's head was grasped and brought to the level of the incision. Fundal pressure was applied and infant was delivered without difficulty. Mouth and nares were suctioned with bulb suction. After the umbilical cord was clamped and cut, the infant was handed off to the pediatric staff. A sample of cord blood was then obtained. Cord gas was sent (pH 7.13) The placenta was delivered intact via uterine massage. The uterus was exteriorized and cleared of all clots and debris. The uterine incision was closed using 0 Vicryl in a running locked fashion. This extended on the left down to the cervix. I repaired the extension in two layers and then the incision T in Two layers. A second imbricated layer was placed using 0 Vicryl in a running fashion as well. The uterus was flexed forward and the posterior rectouterine space was inspected and cleared of all clots and debris. Again the hysterotomy site was examined and hemostasis was observed. The bilateral tubes and ovaries appeared normal. The uterus was placed back into the abdominal cavity and abdominal gutters were cleared of all clots and debris. A final check of the uterine incision showed it to be hemostatic. The pelvis was irrigated. Intercede was placed over the incision. The peritoneum was closed using 3-0 Vicryl in a running fashion. The fascia was closed with 0 Vicryl in a running fashion. The subcutaneous space was hemostatic, and irrigated. The subcutaneous space was closed with 3-0 Vicryl in several single interrupted stitches. The skin was then closed using 4-0 Monocryl in a running subcuticular fashion. The skin edges were reapproximated together and were hemostatic. A pressure dressing was applied. All sponge, lap and needle counts were correct at the end of the procedure per nursing. Vitals - Labs Vital Signs - I&O Vital Signs Date Time Temp Pulse Resp B/P (MAP) Pulse Ox O2 Delivery O2 Flow Rate FiO2 05/25/18 02:45 98.7 05/24/18 22:15 88 138/69 (92) Room Air 05/24/18 22:00 77 123/70 (87) Room Air 05/24/18 21:45 77 122/68 (86) Room Air 05/24/18 21:30 84 131/71 (91) Room Air 05/24/18 21:15 85 138/76 (96) Room Air 05/24/18 21:00 88 142/78 (99) Room Air 05/24/18 20:45 83 147/77 (100) Room Air 05/24/18 20:35 99.1 05/24/18 20:30 87 145/76 (99) Room Air 05/24/18 20:15 84 146/76 (99) Room Air 05/24/18 20:00 87 133/82 (99) Room Air 05/24/18 19:45 87 138/82 (100) Room Air 05/24/18 19:30 84 134/74 (94) Room Air 05/24/18 19:15 85 131/82 (98) Room Air 05/24/18 19:00 98.7 75 147/79 (101) Room Air 05/24/18 18:45 90 148/90 (109) Room Air 05/24/18 18:30 80 149/76 (100) Room Air 05/24/18 18:15 86 18 133/83 (100) Room Air 05/24/18 18:00 83 132/76 (94) Room Air 05/24/18 17:45 86 135/80 (98) Room Air 05/24/18 17:30 98.6 84 136/81 (99) Room Air 05/24/18 17:15 80 140/71 (94) Room Air 05/24/18 17:00 85 18 141/78 (99) Room Air 05/24/18 16:45 79 132/65 (87) Room Air 05/24/18 16:30 82 138/74 (95) Room Air 05/24/18 16:15 77 137/72 (93) Room Air 05/24/18 16:00 79 133/71 (91) Room Air 05/24/18 15:45 82 118/63 (81) Room Air 05/24/18 15:30 98.4 71 128/72 (90) Room Air 05/24/18 15:15 76 127/67 (87) Room Air 05/24/18 15:00 76 133/73 (93) Room Air 05/24/18 14:45 76 18 131/77 (95) Room Air 05/24/18 14:30 75 136/77 (96) Room Air 05/24/18 14:15 90 144/79 (100) Room Air 05/24/18 14:00 98.1 77 163/88 (113) Room Air 05/24/18 13:45 71 18 162/91 (114) Room Air 05/24/18 13:30 80 155/87 (109) Room Air 05/24/18 13:25 79 161/82 (108) Room Air 05/24/18 13:20 85 126/76 (93) Room Air 05/24/18 13:15 83 147/77 (100) Room Air 05/24/18 13:10 90 127/67 (87) Room Air 05/24/18 13:00 87 156/88 (110) Room Air 05/24/18 12:50 87 156/88 (110) Room Air 05/24/18 12:47 76 154/79 (104) Room Air 05/24/18 12:45 97.6 76 18 148/78 (101) Room Air 05/24/18 12:41 74 148/75 (99) Room Air 05/24/18 12:30 80 146/77 (100) Room Air 05/24/18 12:00 Room Air 05/24/18 11:00 99.2 81 151/103 (119) Room Air 05/24/18 10:00 84 18 140/89 (106) Room Air 05/24/18 09:00 82 133/82 (99) Room Air 05/24/18 08:00 98.9 86 18 144/81 (102) Room Air 05/24/18 06:30 79 126/70 (88) I & O 05/25/18 07:00 Intake Total 1000 ml Balance 1000 ml Labs Laboratory Tests 05/24/18 06:15: Glucometer 72 KAMILLE DOMINGUEZ DO May 25, 2018 04:59
[2018-05-25] MEDS ORDERED: HYDROmorphone 2 MG/ML VIAL (DILAUDID) IV PRN (05:00)
[2018-05-25] MEDS ORDERED: CITRIC ACID/SOB CIT (BICITRA) 30 ML UDC PO ONE (05:00)
[2018-05-25] MEDS ORDERED: METOCLOPRAMIDE INJ 10 MG/2 ML (REGLAN) IV ONE (05:00)
[2018-05-25] MEDS ORDERED: MEASLES,MUMPS,RUBELLA 1 EA INJ SC SCH (05:00)
[2018-05-25] MEDS ORDERED: FAMOTIDINE 20MG/2ML IV (PEPCID) IV ONE (05:00)
[2018-05-25] MEDS ORDERED: TETANUS,DIPTH,PERTUSS P/F (BOOSTRIX) 0.5 ML VIAL IM SCH (05:00)
--- NOTE | 2018-05-25 05:10 | Discharge Inst-Women's Service ---
Discharge Inst-Women's Serv Depart Medication/Instructions New, Converted or Re-Newed RX: RX on Chart Final Diagnosis failure to progress gestational diabetes, A1 Chronic hypertension in 39 2/7 weeks AMA, pirmiparous Consults/Follow Up Additional Follow Up: Yes (1-2 weeks with Barron and 6 weeks with Barron) Activity Activity: Activity as Tolerated (no lifting over 25 lbs) Driving Instructions: No Driving for 1 Week NO SMOKING: NO SMOKING Nothing Inside Vagina: No Douching, No [place], No Tampons Diet Discharge Diet: No Restrictions Symptoms to Report to DrSteve: Swelling Increased, Bleeding Excessive, Pain Increased, Fever Over 101 Degrees F, Vaginal Bleeding Increase, Cramps in Feet or Legs, Vaginal Discharge Foul For Any Problems or Questions: Contact Your Physician Skin/Wound Care Infection Signs and Symptoms: Increased Redness, Foul Odor of Wound, Increased Drainage, Skin Itchy or Has a Rash, Increased Swelling, Temperature Above 101 F Operative Area Clean and Dry: Keep Incision Clean/Dry Stitches/Glenda/Dermabond: Dermabond Bathing Instructions: KAMILLE Mujica DO May 25, 2018 05:10
[2018-05-25] MEDS ORDERED: CATHETER FLUSH 10 ML SYR IV SCH (06:00)
[2018-05-25] MEDS ORDERED: PHENYLEPHRINE 100 MCG/ML 10 ML (ANESTHESIA) SYR ONE (06:13)
[2018-05-25] MEDS: LACTATED RINGERS 1,000 ML IV SCH (06:26)
[2018-05-25] MEDS ORDERED: BUPIVACAINE 0.25% 30 ML (SENSORCAINE) VIAL ONE (06:26)
[2018-05-25] MEDS: KETOROLAC 30 MG/ML VIAL IVP SCH ×4 (06:35→23:12)
[2018-05-25] MEDS ORDERED: FERR-84 PO (06:51)
[2018-05-25] MEDS ORDERED: IBUP-844 PO (06:51)
[2018-05-25] MEDS ORDERED: DOCU100C37 PO (06:51)
[2018-05-25] MEDS ORDERED: ACET-77 PO (06:51)
[2018-05-25] MEDS ORDERED: Oxycodone Hcl PO (06:51)
[2018-05-25] MEDS ORDERED: PATIENT MAY USE OWN MED,SINGLE MED PO SCH (07:00)
[2018-05-25] MEDS ORDERED: ONDANSETRON 4 MG/2 ML (SDV) Z0FRAN IV PRN (07:15)
[2018-05-25] MEDS ORDERED: METOCLOPRAMIDE INJ 10 MG/2 ML (REGLAN) IV PRN (07:15)
[2018-05-25] MEDS ORDERED: morphine INJ 10 MG/ML 1ML (SYR OR VIAL) IVP ONE (07:15)
[2018-05-25] MEDS ORDERED: MEPERIDINE (DEMEROL) INJ 50 MG/ML IVP ONE (07:15)
[2018-05-25] MEDS ORDERED: NALOXONE 0.4 MG/ML 1 ML (NARCAN) VIAL IV PRN ×2 (07:15)
[2018-05-25] MEDS ORDERED: ONDANSETRON 4 MG/2 ML (SDV) Z0FRAN IVP PRN (07:15)
[2018-05-25] MEDS ORDERED: diphenhydrAMINE 50 MG/ML INJ (BENADRYL) IV PRN (07:15)
--- NOTE | 2018-05-25 07:15 | NUR ---
REPORT TO ONCOMING SHIFT. WILL RECEIVE REMAINDER OF REPORT FROM RECOVERY.
--- NOTE | 2018-05-25 07:40 | NUR ---
TRANSFERRED TO PP ROOM 306 VIA BED FROM OB PAR AFTER A PRIMARY SECTION BY DR. DOMINGUEZ FOR FAILURE TO PROGRESS ACC BY JIMMY ELENA RN. A/O X4. COLOR PALE PINK. SKIN W/D. RESP EASY. SIDE RAILS UP X4. VSS. ABD SOFT. ABD DRSG D/I. EPIDURAL CATHETER SECURED IN PLACE BY APPLICATION TECHNICIAN R/T DIFFICULTY REMOVING IT. FF U/1. VAG FLOW MOD RUBRA. LONGORIA PATENT TO DD WITH SAVANNAH URINE. CALF SCDS ON BILATERALLY. SPOUSE AT BEDSIDE. IV PLACED ON PUMP WITH NEW TUBING. DENIES ANY PAIN. ABLE TO MOVE LEGS SLIGHTLY BUT NOT LIFT THEM OFF OF BED. ORIENTED TO SURROUNDINGS, CALL LIGHT OPERATION, ROOM SERVICE PROCEDURE, INFORMATION PAPERS, AND PLAN OF CARE.
--- NOTE | 2018-05-25 07:45 | NUR ---
LEFT LABIA NOTED TO BE SWOLLEN.
--- NOTE | 2018-05-25 09:50 | NUR ---
ANESTHESIA STUDENT IN TO REMOVE EPIDURAL CATHETER. REMOVED PER SRNA WITH TIP INTACT AND SITE CLEAR.
--- NOTE | 2018-05-25 10:00 | NUR ---
RESTING AT INTERVALS. EATING REGULAR DIET WITHOUT DIFFICULTY.
--- NOTE | 2018-05-25 11:30 | NUR ---
IV TO SALINE LOCK. SITE CLEAR. TAKING P.O. FLUIDS VERY WELL.
[2018-05-25] MEDS: ACETAMINOPHEN 500 MG TAB (TYLENOL) PO SCH ×2 (12:02→20:06)
[2018-05-25] MEDS: DOCUSATE SODIUM 100 MG (COLACE) CAP PO SCH ×2 (12:03→20:06)
[2018-05-25] MEDS: METOCLOPRAMIDE 10 MG (REGLAN) TAB PO SCH ×3 (12:03→23:12)
--- NOTE | 2018-05-25 12:15 | NUR ---
[place] D/C'ED WITH 280 CC SAV[place] URINE IN BAG. UP TO THE BATHROOM. VOIDED SMALL AMOUNT OF URINE. PASSED FLATUS. PERICARE PERFORMED WITH PAD/PANTIES APPLIED. AMBULATED WELL BACK TO THE CHAIR. MOVING WELL.
--- NOTE | 2018-05-25 13:10 | NUR ---
PT AND S.O. AMBULATED TO NURSERY ACC BY THIS RN TO FEED INFANT. SEE NURSERY NOTES.
--- NOTE | 2018-05-25 14:30 | NUR ---
AMB BACK TO ROOM. MOVES WELL. OFFERS NO COMPLAINTS.
--- NOTE | 2018-05-25 16:10 | NUR ---
INFANT TO ROOM VIA OPEN CRIB. PT VOIDING LARGER AMOUNTS OF URINE AT THIS TIME.
--- NOTE | 2018-05-25 16:12 | Anesthesia-Regional Post-Op ---
Regional Patient Condition Mental Status: Alert, Oriented x3 Circulation: Same as Pre-Op Headache: Absent Sensation: Full Recovery Motor Block: Absent Post Op Complications Complications None Follow Up Care/Instructions Patient Instructions None needed. Anesthesia/Patient Condition Additional TAP block bilaterally for post operative pain control. Patient is doing well, no complaints, stable vital signs, no apparent adverse anesthesia problems. No complications reported per nursing. REANNA PAIGE CRNA May 25, 2018 16:12
--- NOTE | 2018-05-25 16:42 | NUR ---
ASSISTED WITH WITH A SHIELD. GOOD INTERACTION NOTED.
--- NOTE | 2018-05-25 17:40 | NUR ---
FOB TO DESK ASKING QUESTIONS ABOUT GIVING BABY A BOTTLE. DISCUSSED PROS AND CONS WITH STATED UNDERSTANDING. INFORMED THAT WE WILL ABIDE WITH THE DECISION THEY MAKE.
--- NOTE | 2018-05-25 18:45 | NUR ---
REASSURED MOM THAT ANY DECISION THEY MAKE REGARDING FEEDING OF WILL BE SUPPORTED. STATES NOT SURE YET.
--- NOTE | 2018-05-25 20:00 | NUR ---
Pt evening assessment completed and pt given education on post care of self and infant. Patient receptive to teaching. Pt up ambulating room with no complaints.
[2018-05-26] MEDS ORDERED: MILK OF MAGNESIA 400 MG/5 ML 30 ML UDC PO PRN (05:00)
[2018-05-26] MEDS: IBUPROFEN 600 MG (MOTRIN) TAB PO SCH ×3 (05:46→17:55)
[2018-05-26] MEDS: ACETAMINOPHEN 500 MG TAB (TYLENOL) PO SCH ×2 (05:47→15:52)
[2018-05-26] MEDS: METOCLOPRAMIDE 10 MG (REGLAN) TAB PO SCH ×3 (05:47→17:54)
[2018-05-26 05:54] VITALS: BP 135/82
[2018-05-26 06:40] LABS: BASOPHILS % (AUTO) 0 % (0-10); EOSINOPHILS % (AUTO) 0 % (0-10); HEMATOCRIT 25 % (35-52); LYMPHOCYTES # (AUTO) 1.2 X 10^3 (1.0-4.0); LYMPHOCYTES % (AUTO) 8 % (12-44); MEAN CORPUSCULAR HEMOGLOBIN 27 PG (25-34); MEAN CORPUSCULAR HGB CONC 33 G/DL (32-36); MEAN CORPUSCULAR VOLUME 82 FL (80-99); MEAN PLATELET VOLUME 10.3 FL (7.4-10.4); MONOCYTES # (AUTO) 1.2 X 10^3 (0.0-1.0); MONOCYTES % (AUTO) 8 % (0-12); NEUTROPHILS # (AUTO) 12.8 X 10^3 (1.8-7.8); NEUTROPHILS % (AUTO) 83 % (42-75); PLATELET COUNT 182 10^3/uL (130-400); RED CELL DISTRIBUTION WIDTH 14.9 % (10.0-14.5); WHITE BLOOD COUNT 15.4 10^3/uL (4.3-11.0)
--- NOTE | 2018-05-26 09:00 | NUR ---
ASSESSMENT COMPLETED. VSS. CONTINUES TO DO WELL. GOOD INTERACTION NOTED.
--- NOTE | 2018-05-26 10:25 | Postpartum Progress Note ---
Note Note Day # 1 Subjective: Covering for Dr. Barron, this patient was a PLTCS yesterday morning around 5 am. Today patient is without complaints. Ambulating, voiding. Tolerating a regular diet without nausea or vomiting. Normal lochia. Pain is well controlled with oral pain medications. Objective: Physical Exam: General - Alert and oriented, no apparent distress Abdomen - Soft, appropriately tender to palpation, non-distended, fundus firm at umbilicus Extremities - no edema, negative Vanna's bilaterally Incision- c/d/i Assessment: POD 1 PLTCS GHTN- improved Acute blood loss anemia AMA Plan: Routine care. Encourage breast feeding. Encourage ambulation. Ferrous sulfate supplementation. Plan for discharge tomorrow Vitals - Labs Vital Signs - I&O Vital Signs Date Time Temp Pulse Resp B/P (MAP) Pulse Ox O2 Delivery O2 Flow Rate FiO2 05/26/18 05:54 98.2 113 18 135/82 (99) 96 Room Air 05/25/18 23:14 98.0 101 18 137/75 (95) 96 Room Air 05/25/18 20:00 98.1 100 18 135/80 (98) 97 Room Air 05/25/18 16:00 98.0 103 18 136/83 (100) 99 Room Air 05/25/18 12:00 98.4 94 18 128/66 (86) 98 Room Air I & O 05/26/18 07:00 Intake Total 3000 ml Output Total 5015 ml Balance -2015 ml Labs Laboratory Tests 05/26/18 06:15: White Blood Count 15.4H, Red Blood Count 2.99L, Hemoglobin 8.0#L, Hematocrit 25L , Mean Corpuscular Volume 82, Mean Corpuscular Hemoglobin 27, Mean Corpuscular Hemoglobin Concent 33, Red Cell Distribution Width 14.9H, Platelet Count 182, Mean Platelet Volume 10.3, Neutrophils (%) (Auto) 83H, Lymphocytes (%) (Auto) 8L , Monocytes (%) (Auto) 8, Eosinophils (%) (Auto) 0, Basophils (%) (Auto) 0, Neutrophils # (Auto) 12.8H, Lymphocytes # (Auto) 1.2, Monocytes # (Auto) 1.2H, Eosinophils # (Auto) 0.0, Basophils # (Auto) 0.0 ADIS WINTER DO May 26, 2018 10:25
[2018-05-26 12:00] VITALS: BP 144/80
--- NOTE | 2018-05-26 12:00 | NUR ---
VISITORS AT BEDSIDE. CARING FOR IN ROOM. NO COMPLAINTS.
--- NOTE | 2018-05-26 14:00 | NUR ---
AMBULATES IN HALLWAY FREQUENTLY. MOVES WELL. PLEASANT AFFECT.
--- NOTE | 2018-05-26 16:00 | NUR ---
CONTINUES TO CARE FOR IN ROOM. DENIES ANY NEED FOR PAIN MEDICATION. VOIDING WELL.
[2018-05-26] MEDS: FERROUS SULF 325 MG (IRON) TAB PO SCH (17:54)
[2018-05-26 18:00] VITALS: BP 164/82
--- NOTE | 2018-05-26 18:00 | NUR ---
BP ELEVATED. PT HAS HAD LOTS OF VISITORS AND SOME ANXIETY. EXPECTING ANOTHER VISITOR. WILL RECHECK LATER.
[2018-05-26 20:00] VITALS: BP 124/79
[2018-05-26] MEDS: DOCUSATE SODIUM 100 MG (COLACE) CAP PO SCH (20:11)
[2018-05-27] MEDS: METOCLOPRAMIDE 10 MG (REGLAN) TAB PO SCH ×2 (00:23→05:58)
[2018-05-27] MEDS: ACETAMINOPHEN 500 MG TAB (TYLENOL) PO SCH ×2 (00:23→08:55)
[2018-05-27] MEDS: IBUPROFEN 600 MG (MOTRIN) TAB PO SCH ×2 (00:23→05:58)
[2018-05-27 00:25] VITALS: BP 119/74
[2018-05-27 05:58] VITALS: BP 128/81
--- NOTE | 2018-05-27 07:00 | NUR ---
report from charlette hendrix rn
--- NOTE | 2018-05-27 08:00 | NUR ---
dr gayle here to see pt. new orders received for discharge to home
--- NOTE | 2018-05-27 08:27 | Postpartum Progress Note ---
Note Note Day # 2 Subjective: Patient is without complaints. Ambulating, voiding. Tolerating a regular diet without nausea or vomiting. Normal lochia. Pain is well controlled with oral pain medications. Objective: Physical Exam: General - Alert and oriented, no apparent distress Abdomen - Soft, appropriately tender to palpation, non-distended, fundus firm at umbilicus Extremities - no edema, negative Vanna's bilaterally Incision- c/d/i Assessment: POD 2 PLTCS Acute blood loss anemia GHTN- improved today and continues to be controlled without meds AMA Plan: Routine care. Encourage breast feeding. Encourage ambulation. Ferrous sulfate supplementation. Plan for discharge today Vitals - Labs Vital Signs - I&O Vital Signs Date Time Temp Pulse Resp B/P (MAP) Pulse Ox O2 Delivery O2 Flow Rate FiO2 05/27/18 05:58 98.9 96 16 128/81 (97) 97 05/27/18 00:25 98.2 89 18 119/74 (89) 96 05/26/18 20:00 96 124/79 (94) 05/26/18 18:00 98.7 107 18 164/82 (109) 98 Room Air 05/26/18 12:00 98.8 108 18 144/80 (101) 98 Room Air I & O 05/27/18 07:00 Intake Total 3400 ml Output Total 2600 ml Balance 800 ml ADIS WINTER DO May 27, 2018 08:27
[2018-05-27] MEDS: FERROUS SULF 325 MG (IRON) TAB PO SCH (08:55)
[2018-05-27] MEDS: DOCUSATE SODIUM 100 MG (COLACE) CAP PO SCH (08:55)
--- NOTE | 2018-05-27 08:55 | NUR ---
a.m. medications given to pt. pt reports pain level 3 on 1/10 scale. reports ambulating without issues. resp unlabored with breath sounds CTA. HRRR. abd soft with positive bowel sounds. abd incision open to air with mild bruising at incision site. FF U/1. vag flow lt rubra. mild 1+ pitting edema of lower extremities present. pt moves all extremities actively. reviewed medication schedule and discharge to home this today. pt voices no concerns at this time.
[2018-05-27 09:00] VITALS: BP 158/98
--- NOTE | 2018-05-27 09:15 | NUR ---
infant to room after a.m assessment. yesy dutton photo intern notified of PT desire for visit before discharge
[2018-05-27 11:00] VITALS: BP 134/90
--- NOTE | 2018-05-27 12:00 | NUR ---
home care instructions reviewed with pt. follow up appointment made with dr pederson for 1 week and 6 week follow up. instructions reviewed. pt acknowledges understanding of instructions verbally and with her signature
--- NOTE | 2018-05-27 13:10 | NUR ---
infant discharged to home with parents. belted in rear facing car seat
== END 2018-05-27 13:10 | disposition home or self-care (01) | DRG 787 ==
LOC: LDRP 19:46 → WS 05-25 07:40
PROVIDERS: ADMIT Obstetrics & Gynecology; ATTEND Obstetrics & Gynecology
PROC: 10D00Z1 Extraction of Products of Conception, Low, Open Approach (ICD-10-PCS; principal; 2018-05-25 06:00)
DX: O10.013 Pre-existing essential hypertension complicating pregnancy, third trimester (principal); O99.03 Anemia complicating the puerperium; D62 Acute posthemorrhagic anemia; O24.410 Gestational diabetes mellitus in pregnancy, diet controlled; O62.0 Primary inadequate contractions; O33.9 Maternal care for disproportion, unspecified; O09.513 Supervision of elderly primigravida, third trimester; Z3A.39 39 weeks gestation of pregnancy; Z37.0 Single live birth
CPT/HCPCS: 36415; 81000; 82962; 85025; 86850; 86900; 86901; 88307; 94664

== ENCOUNTER → 2018-05-31 | Outpatient (CLI) | payer BC ==
[~2018-05-31] MED LIST changes: +ACET-77 PO; +DOCU100C37 PO; +FERR-84 PO; +IBUP-844 PO; +Oxycodone Hcl PO
[2018-05-31 12:11] LABS: HEMOGLOBIN 9.1 G/DL (11.5-16.0); MEAN PLATELET VOLUME 9.4 FL (7.4-10.4); RED CELL DISTRIBUTION WIDTH 14.5 % (10.0-14.5)
[2018-05-31 12:28] LABS: ALANINE AMINOTRANSFERASE 32 U/L (0-55); ALBUMIN 3.4 GM/DL (3.2-4.5); ALKALINE PHOSPHATASE 132 U/L (40-136); BILIRUBIN,TOTAL 0.2 MG/DL (0.1-1.0); BUN/CREATININE RATIO 13; CALCIUM 8.5 MG/DL (8.5-10.1); CARBON DIOXIDE 20 MMOL/L (21-32); CHLORIDE 111 MMOL/L (98-107); CREATININE SERUM 0.63 MG/DL (0.60-1.30); GFR ESTIMATED > 60; GLUCOSE 79 MG/DL (70-105); SODIUM 142 MMOL/L (135-145); URIC ACID 5.3 MG/DL (2.6-7.2)
[2018-05-31 12:29] LABS: URINE CREATININE FOR RATIO 20 MG/DL (30-125); URINE PROTEIN FOR RATIO ONLY < 6 MG/DL (6-12)
== END ==
LOC: WSo 12:05
PROVIDERS: ATTEND Obstetrics & Gynecology
DX: O10.03 Pre-existing essential hypertension complicating the puerperium (principal)
CPT/HCPCS: 36415; 80053; 82570; 83615; 84156; 84550; 85027